=== PATIENT | male | born 1945 | race Caucasian/White ===

== ENCOUNTER 2023-03-21 07:59 | Emergency (ER) | payer OTHER ==
[~2023-03-21] VITALS: Ht 177.8 cm; Wt 99.8 kg
== END 2023-03-21 14:27 | disposition designated cancer center or children's hospital (05) ==
LOC: ER 07:59
DX: S53.144A Lateral dislocation of right ulnohumeral joint, initial encounter (principal); W01.0XXA Fall on same level from slipping, tripping and stumbling without subsequent striking against object, initial encounter; Y93.89 Activity, other specified; Y92.013 Bedroom of single-family (private) house as the place of occurrence of the external cause; Z20.822 Contact with and (suspected) exposure to COVID-19